=== PATIENT | female | born 1970 | race Caucasian/White ===

== ENCOUNTER 2021-11-17 11:04 | Day surgery (SDC) | payer OTHER ==
[~2021-11-17] VITALS: Ht 157.5 cm; Wt 108.0 kg
[2021-11-17] MEDS ORDERED: MIDAZOLAM 5 MG/5 ML VIAL ONE (13:17)
[2021-11-17] MEDS ORDERED: fentaNYL citrate 0.05 MG/ML VIAL ONE (13:17)
[2021-11-17] MEDS ORDERED: MIDAZOLAM 5 MG/5 ML VIAL IV ONE (14:45)
== END 2021-11-17 14:35 | disposition home or self-care (01) ==
LOC: MDS 11:04 → MMU 11:05 → MDS 14:35
PROVIDERS: ATTEND Internal Medicine Gastroenterology
DX: K21.9 Gastro-esophageal reflux disease without esophagitis (principal); K44.9 Diaphragmatic hernia without obstruction or gangrene; I10 Essential (primary) hypertension; M19.90 Unspecified osteoarthritis, unspecified site; M79.7 Fibromyalgia; F32.9 Major depressive disorder, single episode, unspecified; Z88.8 Allergy status to other drugs, medicaments and biological substances; Z79.899 Other long term (current) drug therapy
CPT/HCPCS: 43235; J2250; J3010